=== PATIENT | male | born 1985 | race Caucasian/White ===

== ENCOUNTER 2017-11-07 14:52 | Emergency (ER) | payer OTHER ==
[~2017-11-07] VITALS: Ht 185.4 cm; Wt 81.7 kg
--- NOTE | 2017-11-09 08:01 | EKG ---
[facility] [address] [facility] [place], [place] [address] Signed Sinus bradycardia with premature atrial complexes Otherwise normal ECG No previous ECGs available Confirmed by EMERY HENSLEY MD [id number] on 11/09/2017 8:01:02 AM Electronically Signed By: EMERY HENSLEY MD 11/09/17 0801 PATIENT NAME: ALLEN ANN Electrocardiogram DATE OF : 87 PHYSICIAN: EMERY HENSLEY MD REPORT #: [id number] REPORT IS CONFIDENTIAL AND NOT TO BE RELEASED WITHOUT AUTHORIZATION
== END 2017-11-07 18:24 | disposition home or self-care (01) ==
LOC: ED 14:52
DX: S06.0X9A Concussion with loss of consciousness of unspecified duration, initial encounter (principal); F17.200 Nicotine dependence, unspecified, uncomplicated; W01.198A Fall on same level from slipping, tripping and stumbling with subsequent striking against other object, initial encounter
CPT/HCPCS: 70450; 80053; 85025; 85379; 93005; 93010; 96360; 96361; 99284; J7030